=== PATIENT | male | born 1965 | race Caucasian/White ===

== ENCOUNTER 2018-01-11 10:23 | Emergency (ER) | payer MEDICAID, SELFPAY ==
[2018-01-11 10:24] VITALS: BP 141/92; PULSE 91; RESP 22; TEMP 36.2; O2SAT 99; BMI 28.8
[2018-01-11 10:26] VITALS: O2SAT 98
--- NOTE | 2018-01-11 10:27 | ED.RN ---
PT HAS NOT BEEN ON HIS MEDICATION FOR ROUGHLY A WEEK. WAITING FOR THE SCRIPTS TO BE CALLED IN BY ISABELLA CINTRON
--- NOTE | 2018-01-11 10:34 | RAD_ITS ---
STUDY: X-RAY CHEST REASON FOR EXAM: Male, 52 years old. 3 day history of cough and chest congestion. TECHNIQUE: PA and lateral views of the chest. COMPARISON: Comparison is made with prior study dated June 12, 2017. FINDINGS: Hyperinflation. Scattered calcified granulomas. The lungs are clear. There is no demonstrated pleural abnormality. Normal size heart. Normal mediastinum and nitin. Normal visualized pulmonary arteries. There is atherosclerotic tortuosity of the aortic arch and descending thoracic aorta. There are diffuse degenerative changes of the visualized thoracic spine. Normal visualized ribs, clavicles, and shoulders. There is no demonstrated abnormality of the visualized soft tissue structures of the upper abdomen. RAD/Chest PA and Lateral IMPRESSION: Hyperinflation. The lungs are clear. Electronically Signed: Horacio Nielson MD at 11:31 EDT Tel [phone], Service support ,
--- NOTE | 2018-01-11 10:39 | ED.DCSUM_ITS ---
- ER Visit Summary Date of Service: 01/11/18 Chief Complaint: I think I have pneumonia History of Present Illness: The patient is a 52 M who is residing at the [facility]. He was exposed to someone with bronchitis. Over the last 3 days, he thinks he might be developing pneumonia. He had similar symptoms in the past with pneumonia. He reports a cough, dry mouth, chest discomfort, weakness, and shortness of breath. He is a smoker and has a history of alcohol abuse. Denies any history of heart problems or PE. Physical Examination: Vital signs unremarkable. Afebrile. Nontoxic and in no acute distress. Skin is normal in color without diaphoresis or pallor. Heart regular. Lungs show wheezing in all lay. Abdomen soft. Calves soft and supple. Test Results: Chest x-ray pending. Emergency Department Course and Treatment: Patient has symptoms and a history concerning for an infectious process. Will check a chest x-ray. He was treated with DuoNeb while awaiting results. Chest x-ray showed hyperinflation but otherwise lungs were clear. No sign of pneumonia. She has significant improvement after a DuoNeb treatment. I suspect he has underlying COPD. He was exposed to bronchitis and has infectious symptoms. Will treat with albuterol and azithromycin. He does have some risk factors for ACS, but nothing to suggest angina, OR, PE, dissection. Return for any new or worsening issues. He was referred to a primary care doctor for follow-up. Treatment Plan: As above Disposition: Discharge Impression: 1. Acute bronchitis This note was generated with [employer] dictation software. It may contain incorrect words, spelling, and punctuation that were not noted in review of the chart prior to signing ED Disposition - Plan for ED Patient: Chief Complaint: Cough Referrals: Care Physician,No Primary [Primary Care Provider] -
[2018-01-11 10:43] VITALS: PULSE 97; RESP 18
[2018-01-11] MEDS: Ipratropium/Albuterol Sulfate 3 ML AMPUL.NEB INHALATION (10:43)
--- NOTE | 2018-01-11 12:21 | ED.DEP ---
ED Disposition - Plan for ED Patient: Chief Complaint: Cough Instructions: ED Bronchitis Asthmatic Prescriptions: Azithromycin [Zithromax] 250 mg PO DAILY #6 tab Referrals: Magnolia Cole MD [STAFF PHYSICIAN] -
[2018-01-11 12:38] VITALS: BP 145/92; PULSE 89; RESP 16; O2SAT 97; O2SAT 99
== END 2018-01-11 12:39 | disposition home or self-care (01) ==
PROVIDERS: Emergency Provider Emergency Medicine
DX: J20.9 Acute bronchitis, unspecified (principal); Z87.01 Personal history of pneumonia (recurrent); F17.200 Nicotine dependence, unspecified, uncomplicated; Z98.52 Vasectomy status; Z79.82 Long term (current) use of aspirin; Z79.899 Other long term (current) drug therapy
CPT/HCPCS: 71046; 94640; 99284

== ENCOUNTER 2018-02-08 10:05 | Emergency (ER) | payer MEDICAID, SELFPAY ==
[2018-02-08] VITALS (7 sets, daily range): BP systolic 117–128; BP diastolic 70–83; PULSE 60–106; RESP 15–18; TEMP 36.4; O2SAT 97–99; BMI 28.8
--- NOTE | 2018-02-08 10:26 | EKG12_ITS ---
Test Reason : [facility] [place] Blood Pressure : / mmHG Vent. Rate : 094 BPM Atrial Rate : 094 BPM P-R Int : 156 ms QRS Dur : 090 ms QT Int : 384 ms P-R-T Axes : -05 025 058 degrees QTc Int : 480 ms Sinus rhythm with Premature atrial complexes Prolonged QT Abnormal ECG Confirmed by JENNY SHANE, ISABELLE ([id number]), general expeditor LUIS E HARDY ([id number]) on 02/12/2018 2:00:01 PM Referred By: ZAINAB Confirmed By:ISABELLE ALVARADO MD
[2018-02-08 10:49] LABS: Absolute Lymphocyte Count 1.66 X10^3/ul (0.83-4.51); Basophil# 0.03 X10^3/uL; Basophil% 0.3 % (0-1); Hematocrit 45.1 % (40-54); Hemoglobin 15.7 g/dl (13.0-16.5); Lymphocyte # 1.66 X10^3/ul (4.0); Lymphocyte % 16.2 % (19-41); Mean Corp Hgb Conc 34.8 g/gl (32-36); Mean Corpuscular Hgb 31.2 pg (27.0-32.0); Mean Corpuscular Volume 89.5 fL (80-94); Mean Platelet Vol. 9.1 fl (6.2-12.0); Monocyte# 0.49 X10^3/uL; Monocyte% 4.8 % (0-10); Neutrophil # 8.04 X10^3/uL (2.7-7.7); Neutrophil % 78.6 % (47-70); Platelet Count 263 K/mm3 (150-450); RBC Distribution Width CV 13.2 % (11.6-14.6); RBC Distribution Width SD 43.1 fl (35.1-43.9); Red Blood Count 5.04 M/mm3 (4.6-6.2); White Blood Count 10.2 K/mm3 (4.4-11.0)
[2018-02-08 10:50] LABS: POSITIVE COUNT NO; POSITIVE DIFFERENTIAL NO; POSITIVE MORPHOLOGY NO
[2018-02-08 11:12] LABS: ALB/GLOB Ratio 1.1 RATIO (0.9-2.4); AST(SGOT) 30 U/L (15-37); Alanine Aminotransfer ALT/SGPT 25 U/L (16-61); Albumin, Serum 3.5 g/dL (3.2-5.0); Alkaline Phosphatase 132 U/L (45-117); Anion Gap 17 (5-15); BUN 15 mg/dL (7-18); BUN/Creat Ratio 13.4 RATIO (10-20); Calcium,Total 8.1 mg/dL (8.5-10.1); Chloride 104 mmol/L (98-107); Creatinine, Serum 1.12 mg/dL (0.70-1.30); EST Glomerular Filtration Rate 73 mL/min (>60); Est Glom Filt Rate - Afr Amer 88 mL/min (>60); Estimated Creatinine Clearance 84.68 ml/min; Globulin 3.3 g/dL (2.2-4.2); Glucose 65 mg/dL (74-106); Potassium 4.6 mmol/L (3.5-5.1); Protein, Total 6.8 g/dL (6.4-8.2); Sodium Level 140 mmol/L (136-145); Thyroid Stim Hormone (TSH) 0.89 uIU/mL (0.358-3.74)
--- NOTE | 2018-02-08 11:17 | ED.VISSUMM ---
- ER Visit Summary Date of Service: 02/08/18 Chief Complaint: Suicidal ideation History of Present Illness: The patient is a 52 M who states that he wants to . He wants to stab himself into his neck. He states that 2030 years ago he overdosed on pills. He has been on Cymbalta for about 6 months. This is prescribed by the starts in clinic. He states that he is homeless and jobless child support has taken his license. 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 He states he has not seen his kids for 3 years and that is very hard for him. He states he cannot see his kids for a period of 5 years as he has a restraining order for domestic violence for 5 years. He states the past couple days he has been drinking. He has not had any today. Last drink vodka last night. Physical Examination: Afebrile vital signs are stable Gen: Well-nourished well-developed Head: Normocephalic atraumatic Eyes: Perrl EOMI ENT: TMs clear no rhinorrhea moist mucous membranes Neck: Supple no lymphadenopathy no JVD nontender CVS: Regular rate rhythm no murmurs normal S1-S2 Respiratory: No distress clear to auscultation bilaterally chest nontender Abdomen: Soft nontender nondistended normal bowel sounds no masses Back: Nontender Extremity: Nontender no edema Skin: Normal color no rash Neuro: alert orientated ?3 CN II-XII intact normal strength sensation reflexes gait cerebellar Psych: The patient appears depressed. He admits to suicidal ideation with plan of stabbing himself in the neck. Test Results: EKG demonstrates a sinus rhythm at a rate of 94. Basic labs were essentially negative except for an alcohol level of 175. Emergency Department Course and Treatment: After metabolizing his alcohol he was cleared for crisis evaluation. Patient's plan is to be transferred to psychiatric facility. Impression: 1. Major depression 2. Suicidal ideation 3. Alcohol intoxication This note was generated with [employer] dictation software. It may contain incorrect words, spelling, and punctuation that were not noted in review of the chart prior to signing ED Disposition - Plan for ED Patient: Chief Complaint: Suicidal Referrals: Care Physician,No Primary [Primary Care Provider] -
--- NOTE | 2018-02-08 12:03 | ED.RN ---
pt attempted to urinate without sucess. blood sugar was low given lunch.
[2018-02-08 12:36] LABS: Color, Urine Yellow (Yellow); Glucose, Dipstick Normal (Normal); Leukocyte Esterase-Dipstick Negative /ul (Negative); Nitrite-Dipstick Negative (Negative); Occult Blood-Urine Negative /ul (Negative); Protein-Dipstick Negative (Negative); Specific Gravity, Urine 1.025 (1.002-1.030); Urine Bilirubin Dipstick Negative (Negative); Urine Clarity Clear (Clear); Urine Urobilinogen Normal (Normal)
[2018-02-08 12:39] LABS: Ketone-Dipstick 150 mg/dl (Negative)
[2018-02-08 12:42] LABS: Bacteria 0 SEEN /hpf (None Seen); Mucous, Urine 0 SEEN /hpf (<or=2+); Red Blood Cells-Urine 0 SEEN /hpf (0-5)
[2018-02-08 12:43] LABS: Amphetamine Urine VISTA NEGATIVE (<1000 ng/mL); Barbiturate Urine VISTA NEGATIVE (< 200 ng/mL); Benzodiazepine Urine VISTA NEGATIVE (< 200 ng/mL); Cocaine Urine VISTA NEGATIVE (< 300 ng/mL); Ecstacy Urine VISTA NEGATIVE (< 500 ng/mL); Methadone Urine VISTA NEGATIVE (< 300 ng/mL); PCP Urine VISTA NEGATIVE (< 25 ng/mL); THC Urine VISTA NEGATIVE (< 50 ng/mL); Vista UDS pH Range 5
[2018-02-08 12:56] LABS: White Blood Cells 0-5 SEEN /hpf (0-5)
[2018-02-08 12:58] LABS: Squamous Epithelial Cells - UA 0 SEEN /hpf (0-5)
--- NOTE | 2018-02-08 13:12 | NURSING ---
CHANDLER, CRISIS, WORKING WITH PATIENT
[2018-02-08] MEDS: hydrOXYzine PAM 25 MG Capsule 50 MG PO (13:35)
[2018-02-08] MEDS: LORazepam 1 MG Tablet PO (20:24)
== END 2018-02-08 21:35 ==
LOC: ED 11:21
PROVIDERS: Emergency Provider Emergency Medicine
DX: F32.9 Major depressive disorder, single episode, unspecified (principal); R45.851 Suicidal ideations; F10.129 Alcohol abuse with intoxication, unspecified; Y90.9 Presence of alcohol in blood, level not specified; K21.9 Gastro-esophageal reflux disease without esophagitis; Z87.19 Personal history of other diseases of the digestive system; Z59.0 Homelessness; Z79.899 Other long term (current) drug therapy; Z72.0 Tobacco use
CPT/HCPCS: 36415; 80053; 80307; 80320; 81001; 84443; 84484; 85025; 93005; 99283; G0480

== ENCOUNTER 2018-03-04 09:15 | Emergency (ER) | payer MEDICAID, SELFPAY ==
--- NOTE | 2018-03-04 09:15 | DT_ITS ---
This patient was seen during an EMR downtime March 04, 2018 - March 11, 2018. This patient may have a combination of paper and electronic documentation or all paper documentation. All documentation is viewable within the e-chart portion of [facility] for each patient visit.
[2018-03-07 11:07] LABS: BUN 17 mg/dL (7-18); Glucose 90 mg/dL (74-106)
[2018-03-07 11:08] LABS: Anion Gap 14 (5-15); BUN/Creat Ratio 15.9 RATIO (10-20); Calcium,Total 8.6 mg/dL (8.5-10.1); Chloride 108 mmol/L (98-107); Creatinine, Serum 1.07 mg/dL (0.70-1.30); EST Glomerular Filtration Rate 77 mL/min (>60); Est Glom Filt Rate - Afr Amer 93 mL/min (>60); Sodium Level 142 mmol/L (136-145)
[2018-03-07 12:16] LABS: Amphetamine Urine VISTA NEGATIVE (<1000 ng/mL); Barbiturate Urine VISTA NEGATIVE (< 200 ng/mL); Benzodiazepine Urine VISTA NEGATIVE (< 200 ng/mL); Cocaine Urine VISTA NEGATIVE (< 300 ng/mL); Ecstacy Urine VISTA NEGATIVE (< 500 ng/mL); Methadone Urine VISTA NEGATIVE (< 300 ng/mL); PCP Urine VISTA NEGATIVE (< 25 ng/mL); THC Urine VISTA NEGATIVE (< 50 ng/mL); Vista UDS pH Range 6
[2018-03-07 15:11] LABS: Mucous, Urine 0 SEEN /hpf (<or=2+); Red Blood Cells-Urine 0 SEEN /hpf (0-5); Squamous Epithelial Cells - UA 0 SEEN /hpf (0-5); White Blood Cells 0 SEEN /hpf (0-5)
[2018-03-07 15:28] LABS: Color, Urine Yellow (Yellow); Glucose, Dipstick NEGATIVE (Normal); Urine Bilirubin Dipstick 1 mg/dL (Negative); Urine Clarity Clear (Clear)
[2018-03-07 15:29] LABS: Amorphous Sediment 3+; Bacteria 2+ /hpf (None Seen); Ketone-Dipstick 5 mg/dl (Negative); Leukocyte Esterase-Dipstick 25 /ul (Negative); Nitrite-Dipstick Negative (Negative); Occult Blood-Urine 10 /ul (Negative); Protein-Dipstick 15 mg/dl (Negative); Urine Urobilinogen Normal (Normal)
[2018-03-07 16:57] LABS: Absolute Lymphocyte Count 1.97 X10^3/ul (0.83-4.51); Absolute Neutrophil Count 5.3 X10^3/uL (2.0-7.7); Basophil# 0.01 X10^3/uL; Basophil% 0.1 % (0-1); Eosinophil# 0.05 X10^3/uL; Eosinophils% 0.6 % (0-5); Hematocrit 47.7 % (40-54); Hemoglobin 16.5 g/dl (13.0-16.5); Lymphocyte # 1.97 X10^3/ul (4.0); Lymphocyte % 25.3 % (19-41); Mean Corp Hgb Conc 34.6 g/gl (32-36); Mean Corpuscular Hgb 31.1 pg (27.0-32.0); Mean Corpuscular Volume 89.8 fL (80-94); Mean Platelet Vol. 9.9 fl (6.2-12.0); Monocyte% 6.4 % (0-10); Neutrophil # 5.25 X10^3/uL (2.7-7.7); Neutrophil % 67.6 % (47-70); POSITIVE COUNT NO; POSITIVE DIFFERENTIAL NO; POSITIVE MORPHOLOGY NO; Platelet Count 300 K/mm3 (150-450); RBC Distribution Width CV 13.5 % (11.6-14.6); RBC Distribution Width SD 43.4 fl (35.1-43.9); Red Blood Count 5.31 M/mm3 (4.6-6.2); White Blood Count 7.8 K/mm3 (4.4-11.0)
--- NOTE | 2018-03-29 15:36 | ED.VISSUMM ---
- ER Visit Summary Date of Service: 03/29/18 Chief Complaint: [Suicidal ideation] History of Present Illness: The patient is a 52 M presents the emergency department with plan of suicidal ideation over the last hour. Patient states that he just feels like he does not want to live anymore. Patient apparently was at [facility] and admitted to their psychiatric brink a few weeks ago for similar feelings. During his last visit there patient did have ECT treatments. Patient also states that he is feeling somewhat short of breath over last 20 minutes. Patient was brought in by police today and pink slipped. Patient apparently had a pocket knife that he gave to a friend because he did not feel safe having it. Patient denies any auditory or visual hallucinations. Patient does have a history of bipolar disorder.] Physical Examination: [HEENT-PERRLA, EOMI. Cranial nerves II through XII grossly intact. TMs clear. Mucous membranes moist. No adenopathy. Cardiovascular-regular rate and rhythm without murmur or ectopy Lungs-clear to auscultation, chest wall stable without crepitus or subcu emphysema Abdomen-normoactive bowel sounds, soft, nontender, no rebound or rigidity, no peritoneal signs. Extremities-intact ?4, normal range of motion, normal pulses, atraumatic] Test Results: [CBC with differential obtained was unremarkable. Chemistries unremarkable. Alcohol was 133. Toxicology screen was negative.] Emergency Department Course and Treatment: [Patient did receive DuoNeb aerosol Alex as well in the department. Patient was evaluated by crisis.] Treatment Plan: [Transfer to [facility] psychiatric facility for further evaluation and treatment] Disposition: [Transfer] Impression: [Depression Suicidal ideation] This note was generated with [employer] dictation software. It may contain incorrect words, spelling, and punctuation that were not noted in review of the chart prior to signing ED Disposition - Plan for ED Patient: Disposition: Psychiatric Hospital or Unit Referrals: Care Physician,No Primary [Primary Care Provider] -
--- NOTE | 2018-03-29 15:39 | ED.DCSUM_ITS ---
- ER Visit Summary Date of Service: 03/29/18 Chief Complaint: [Suicidal ideation] History of Present Illness: The patient is a 52 M presents the emergency department with plan of suicidal ideation over the last hour. Patient states that he just feels like he does not want to live anymore. Patient apparently was at [facility] and admitted to their psychiatric brink a few weeks ago for similar feelings. During his last visit there patient did have ECT treatments. Patient also states that he is feeling somewhat short of breath over last 20 minutes. Patient was brought in by police today and pink slipped. Patient apparently had a pocket knife that he gave to a friend because he did not feel safe having it. Patient denies any auditory or visual hallucinations. Patient does have a history of bipolar disorder.] Physical Examination: [HEENT-PERRLA, EOMI. Cranial nerves II through XII grossly intact. TMs clear. Mucous membranes moist. No adenopathy. Cardiovascular-regular rate and rhythm without murmur or ectopy Lungs-clear to auscultation, chest wall stable without crepitus or subcu emphysema Abdomen-normoactive bowel sounds, soft, nontender, no rebound or rigidity, no peritoneal signs. Extremities-intact ?4, normal range of motion, normal pulses, atraumatic] Test Results: [CBC with differential obtained was unremarkable. Chemistries unremarkable. Alcohol was 133. Toxicology screen was negative.] Emergency Department Course and Treatment: [Patient did receive DuoNeb aerosol Laex as well in the department. Patient was evaluated by crisis.] Treatment Plan: [Transfer to [facility] psychiatric facility for further evaluation and treatment] Disposition: [Transfer] Impression: [Depression Suicidal ideation] This note was generated with [employer] dictation software. It may contain incorrect words, spelling, and punctuation that were not noted in review of the chart prior to signing ED Disposition - Plan for ED Patient: Disposition: Psychiatric Hospital or Unit Referrals: Care Physician,No Primary [Primary Care Provider] -
== END 2018-03-05 08:00 ==
LOC: ED 03-06 12:04
PROVIDERS: Emergency Provider Emergency Medicine
DX: F32.9 Major depressive disorder, single episode, unspecified (principal); R45.851 Suicidal ideations; R06.00 Dyspnea, unspecified; F31.9 Bipolar disorder, unspecified; Z79.899 Other long term (current) drug therapy; Z72.0 Tobacco use
CPT/HCPCS: 36415; 80048; 80307; 80320; 81001; 85025; 93005; 94640; 96372; 99285; G0480